=== PATIENT | female | born 1985 | race Caucasian/White ===

== ENCOUNTER 2024-02-20 08:12 | Outpatient (CLI) | payer OTHER, SELFPAY | END 2024-02-20 08:13 | disposition home or self-care (01) | LOC: NFLDREF 02-23 07:00 | PROVIDERS: PCP Family Medicine; Referring Provider Family Medicine; Visit Provider Family Medicine | DX: Z00.00 Encounter for general adult medical examination without abnormal findings (principal); Z13.1 Encounter for screening for diabetes mellitus; Z13.6 Encounter for screening for cardiovascular disorders | CPT/HCPCS: 80048; 80061 ==